=== PATIENT | female | born 1965 | race African-American/Black ===

== ENCOUNTER 2019-09-24 19:50 | Inpatient (IN) | payer BC ==
[2019-09-17 12:23] VITALS: BMI 31.5
--- NOTE | 2019-09-24 07:51 | HP ---
Admitting History and Physical - Admission Chief Complaint: left hip osteoarthritis x years History of Present Illness: 54 year old female presents today in regard to their left hip. Longstanding history of left hip osteoarthritis. Patient complains of pain, limited ROM, difficulty ambulating and difficulty completing activities of daily living. Patient has failed conservative treatment options including PO medications, injections, exercise programs and activity modification. Diagnostic testing reveals severe osteoarthritis of the left hip joint. At this point, patient would like to proceed with surgical intervention; a left total hip arthroplasty, MAKOplasty. History Source: Patient - Past Medical History ...LMP: 09/03/19 Heme/Onc: Yes: Anemia Musculoskeletal: Yes: Osteoarthritis ENT: Yes: Allergic Rhinitis - Past Surgical History Additional Past Surgical History: See written history & physical. - Smoking History Smoking history: Never smoked Have you smoked in the past 12 months: No Home Medications - Allergies Allergies/Adverse Reactions: Allergies Allergy/AdvReac Type Severity Reaction Status Date / Time No Known Drug Allergies Allergy Verified 09/17/19 12:10 - Home Medications Home Medications: Ambulatory Orders Diclofenac Sodium 75 mg PO BID 09/17/19 Ferrous Sulfate [Feosol] 325 mg PO DAILY 09/17/19 Fluticasone Prop 0.05% Nasal [Flonase -] 1 - 2 spray NS DAILY 09/17/19 Saccharomyces Boulardii [Probiotic] 250 mg PO DAILY 09/17/19 Review of Systems - Review of Systems Musculoskeletal: reports: Decreased ROM (left hip), Joint Pain (left hip) Physical Examination Constitutional: Yes: Well Nourished, No Distress Eyes: Yes: Conjunctiva Clear HENT: Yes: Atraumatic Neck: Yes: Supple Cardiovascular: Yes: Regular Rate and Rhythm Respiratory: Yes: Regular Gastrointestinal: Yes: Soft Musculoskeletal: Yes: Joint Stiffness (left hip), Other (limited ROM left hip) Assessment/Plan 54 year old female presents today in regard to their left hip. Longstanding history of left hip osteoarthritis. Patient complains of pain, limited ROM, difficulty ambulating and difficulty completing activities of daily living. Patient has failed conservative treatment options including PO medications, injections, exercise programs and activity modification. Diagnostic testing reveals severe osteoarthritis of the left hip joint. At this point, patient would like to proceed with surgical intervention; a left total hip arthroplasty, MAKOplasty. Pros, cons, risks, benefits & alternatives of a left total hip arthroplasty, MAKOplasty was discussed with the patient at length. Patient confirms his understanding and consents to proceed with a left total hip arthroplasty - MAKOplasty.
--- NOTE | 2019-09-24 15:40 | SURG ---
Surgery Farmhand Note Farmhand: Emilio Scott PA-C Date of Service: 09/24/19 Diagnosis: Left hip osteoarthritis Procedure: Left hip michelet assisted arthroplasty I was present for the entirety of the operative procedure. For further detail, please refer to operative report. Visit type - Case Type Case Type: Scheduled - Emergency Emergency Visit: No - New patient This patient is new to me today: Yes Date on this admission: 09/24/19 - Critical Care Critical Care patient: No
[2019-09-24] MEDS: traMADol HCL 50 MG TABLET PO SCH ×2 (16:05→21:01)
--- NOTE | 2019-09-24 16:06 | OP ---
Operative Note - Note: Operative Date: 09/24/19 Pre-Operative Diagnosis: Left hip OA Operation: Left JACOBO KINDRA Post-Operative Diagnosis: Same as Pre-op Surgeon: Tung Henry Boiler Repairman: Emilio Scott Anesthesia: Spinal Estimated Blood Loss (mls): 200
[~2019-09-24 19:50] MED LIST: ACETAMINOPHEN 1000 MG/100 ML VIAL (NON FORMULARY) IVPB ONE; ACETAMINOPHEN 325 MG TABLET (FP) PO SCH; BUPIVICAINE 0.25%/MORPH PF/KETOROLAC - 51ML DISP.SYRINGE IA ONE; CEFAZOLIN 2 GM in DEXTROSE 5%-WATER - 50 ML IVPB ONE; CELECOXIB 200 MG CAPSULE PO ONE; DEXAMETHASONE SOD PHOSPHATE 4 MG/1 ML VIAL ONE; KETOROLAC TROMETHAMINE 30 MG/1 ML VIAL ONE; LACTATED RINGERS SOLUTION 1,000 ML IV SCH; LIDOCAINE 1% P/F 10 MG/ML VIAL ONE; LIDOCAINE HCL/PF 2% SDV 5ML VIAL ONE; MAG HYDROX/AL HYDROX/SIMETH 30 ML UNIT-DOSE CUP PO PRN; MAGNESIUM HYDROX 2400MG/30ML ORAL SUSPENSION 30 ML CUP PO PRN; MIDAZOLAM HCL 2 MG/2 ML SINGLE DOSE VIAL ONE; ONDANSETRON 4 MG/2 ML VIAL IVPUSH PRN; ONDANSETRON 4 MG/2 ML VIAL ONE; PANTOPRAZOLE 40 MG TABLET PO ONE; PROPOFOL 20 ML ONE; ROPIVACAINE HCL 0.5% 30ML VIAL ONE; SODIUM CHLORIDE 0.9% P/F 10 ML VIAL IJ ONE; TRANEXAMIC ACID 1000 MG/10 ML VIAL IVPB ONE; TRANEXAMIC ACID 1000 MG/10 ML VIAL IVPUSH ONE; TRANEXAMIC ACID 1000 MG/10 ML VIAL ONE; VANCOMYCIN 1,000 MG VIAL (RESTRICTED TO ID ONLY) IVPB ONE; VANCOMYCIN 1,000 MG VIAL (RESTRICTED TO ID ONLY) ONE; ceFAZolin SODIUM 1 GM VIAL IVPB ONE; ceFAZolin SODIUM 1 GM VIAL ONE; oxyCODONE HCL 10 MG SUSTAINED ACTING TABLET PO ONE; oxyCODONE HCL 5 MG TABLET PO PRN
[2019-09-24] MEDS: CEFAZOLIN 2 GM/D5W 2 GM/50 ML ML IVPB SCH (21:00)
[2019-09-24] MEDS: SENNOSIDES/DOCUSATE COMBO (SENNA PLUS) TABLET (UD) PO SCH (21:00)
[2019-09-24] MEDS: CELECOXIB 200 MG CAPSULE PO SCH (21:00)
[2019-09-24] MEDS: ACETAMINOPHEN 325 MG TABLET (FP) PO SCH (21:01)
[2019-09-24] MEDS: oxyCODONE HCL 10 MG SUSTAINED ACTING TABLET PO SCH (21:01)
[2019-09-24] MEDS: ASCORBIC ACID 500 MG TABLET (FP) PO SCH (21:01)
[2019-09-24] MEDS: GABAPENTIN 300 MG CAPSULE PO SCH (21:01)
--- NOTE | 2019-09-24 21:04 | SPEC ---
DATE OF OPERATION: 09/24/2019 PREOPERATIVE DIAGNOSIS: Left hip osteoarthritis. POSTOPERATIVE DIAGNOSIS: Left hip osteoarthritis. PROCEDURE: Left total hip replacement with SIMBA plasty robotic navigation. ATTENDING: Fatoumata Garcia MD MD ALLERGY IMMUNOLOGY: Emilio Scott PA-C ANESTHESIA: Spinal plus sedation. ESTIMATED BLOOD LOSS: 200 mL. COMPLICATIONS: None. DISPOSITION: The patient was transferred to the PACU in stable condition. IMPLANT USED: Monae Accolade II size 4 femoral component, stridor Trident II 2-mm acetabular component, with 25 and 30-mm acetabular screws. MDM bipolar head ball and liner with ceramic inner head ball. INDICATIONS: This is a 54-year-old female who presented to the office complaining severe left hip pain. She was seen and examined by Dr. Garcia and diagnosed with severe left hip osteoarthritis. The patient was initially treated conservatively but continued to have severe pain and ambulatory dysfunction. She was therefore indicated for a left total hip replacement. The risks, benefits, and alternatives to the procedure were explained to the patient in great detail, and she elected to proceed with the surgery. DESCRIPTION OF PROCEDURE: On the day of surgery, the patient was taken to the operating room and placed on the OR table. Spinal anesthesia was administered by the anesthesiologist. The patient was then positioned in the lateral decubitus position on the table and all bony prominences were padded. An axillary roll was placed. The operative hip was then prepped and draped in the usual sterile fashion and intravenous antibiotics were given for infection prophylaxis. A surgical time-out was then performed with the team, and the patients identity, procedure, side, availability of implants, and the administration of antibiotics were confirmed. An approximately 15-cm longitudinal incision was made through the skin centered on the greater trochanter of the hip. This dissection was carried down through the subcutaneous tissues to the deep fascia. This fascia was then incised and a Cobra was placed around the inferior femoral neck. Electrocautery was used to reflect the anterior 40% of the gluteus medius and minimus starting at the musculotendinous junction and leaving a cuff for closure. This was reflected to reveal the capsule of the hip joint. An anterior capsulectomy was performed and the femoral head and neck were visualized. Grade 4 changes were noted diffusely throughout the joint. At this point, three small stab incisions were made superior to the main incision along the iliac crest. Three self-drilling Steinmann pins were then placed and the [employer] pelvic array was attached. Reference points on the limb were then entered into the robotic device and the limb length deficiency, offset, and femoral neck resection level were then calculated by the software. The hip was then dislocated with traction and external rotation. An oscillating saw was used to make the femoral neck cut at the level previously templated, and the femoral head was removed. Attention was then turned to the acetabulum. Retractors were then placed around the acetabulum and the labrum was removed. An acetabular checkpoint pin and the [employer] software were used to register the contours of the acetabulum. The acetabulum was then reamed in a single stage to the preoperatively templated size using the [employer] robotic arm. The appropriately sized cup was then impacted and had solid fixation as well as the preset inclination and version of 40 and 20 degrees, respectively. A polyethylene liner was then placed in the cup. Attention was then turned back to the femur, which was externally rotated for improved visualization. A femoral neck elevator was used to present the femoral neck cut, a box osteotome was used to enter the femoral canal, and a canal finder was used to go down the femoral shaft. The Simba broaches were used sequentially until the optimal scratch fit was achieved. This correlated with the preoperatively templated size. From here, several different offset head and neck configurations were tested until excellent stability and length were obtained. These measurements were quantified using the [employer] software. All trial components were then removed, the femur was copiously irrigated, and the final components were placed. Leg length and stability were checked again and found to be excellent. Irrigation was performed again. Wound closure was started by repairing the abductor muscles with a no. 2 FiberWire stitch in a Krackow configuration passed through bone tunnels in the greater trochanter and tied over a bony bridge. This repair was then reinforced with a 0 V-Loc 180 barbed suture. Next, no. 1 Polysorb and 0 V-Loc 180 were used to close the fascia. The deep subcutaneous tissue was closed with no. 1 Polysorb sutures, and 2-0 Polysorb was used for the superficial subcutaneous tissue. The skin was closed using both 3-0 V-Loc 90 suture in a running subcuticular fashion and SwiftSet skin adhesive. The Simba array and pins were removed from the iliac crest and the stab incision sites were irrigated and closed with 4-0 Polysorb sutures and [employer] skin adhesive. Once this was completed, a sterile dressing was applied. The patient was then awakened and taken to the PACU in stable condition. ADDENDUM: After final implants were placed, a 3-minute dilute Betadine soak was performed. Following this, the wound was thoroughly irrigated with normal saline via pulsatile lavage and wound closure was begun. FATOUMATA GARCIA M.D. [id number]
[2019-09-24] MEDS: KETOROLAC TROMETHAMINE 30 MG/1 ML VIAL IVPUSH SCH (21:44)
[2019-09-25] MEDS ORDERED: DEXAMETHASONE SOD PHOSPHATE 10 MG/1 ML VIAL IVPB ONE
[2019-09-25] MEDS: KETOROLAC TROMETHAMINE 30 MG/1 ML VIAL IVPUSH SCH ×3 (03:37→16:30)
[2019-09-25] MEDS: traMADol HCL 50 MG TABLET PO SCH ×4 (03:38→22:20)
[2019-09-25] MEDS: ACETAMINOPHEN 325 MG TABLET (FP) PO SCH ×4 (03:38→22:19)
[2019-09-25] MEDS: CEFAZOLIN 2 GM/D5W 2 GM/50 ML ML IVPB SCH ×2 (06:22→14:40)
[2019-09-25] MEDS: ASPIRIN 325 MG TABLET PO SCH (08:10)
[2019-09-25 08:13] LABS: CALCIUM 8.5 mg/dl (8.5-10); CREATININE 0.5 mg/dl (0.55-1.3); POTASSIUM 3.8 mmol/L (3.5-5.1)
[2019-09-25 08:19] LABS: HEMATOCRIT 27.1 % (32.4-45.2); HEMOGLOBIN 9.2 GM/dl (10.7-15.3); MCH 26.2 pg (25.7-33.7); MEAN CELL VOLUME 76.9 fl (80-96); MEAN PLT VOLUME 8.9 fl (7.5-11.1); PLATELET COUNT 279 K/MM3 (134-434); RBC 3.52 M/mm3 (3.60-5.2); RDW 17.1 % (11.6-15.6); WHITE BLOOD COUNT 13.9 K/mm3 (4.0-10.8)
[2019-09-25] MEDS: CELECOXIB 200 MG CAPSULE PO SCH ×2 (10:05→22:22)
[2019-09-25] MEDS: GABAPENTIN 300 MG CAPSULE PO SCH ×2 (10:05→22:19)
[2019-09-25] MEDS: MULTIVITAMINS (DAILY MVI) TABLET (FP) PO SCH (10:10)
[2019-09-25] MEDS: PANTOPRAZOLE 40 MG TABLET PO SCH (10:10)
[2019-09-25] MEDS: SENNOSIDES/DOCUSATE COMBO (SENNA PLUS) TABLET (UD) PO SCH ×2 (10:10→22:20)
[2019-09-25] MEDS: oxyCODONE HCL 10 MG SUSTAINED ACTING TABLET PO SCH ×2 (10:20→22:22)
[2019-09-25] MEDS: ASCORBIC ACID 500 MG TABLET (FP) PO SCH ×2 (10:25→22:22)
--- NOTE | 2019-09-25 14:11 | PN ---
Progress Note (short form) - Note Progress Note: ANESTHESIA POSTOP 54 YO FEMALE POD#1 S/P LTHA Patient sitting in chair. No complaints. Pain adequately controlled. VSS, Afebrile Continue current care. Encouraged active participation in PT and use of IS. No anesthetic complications.
[2019-09-26] MEDS: ACETAMINOPHEN 325 MG TABLET (FP) PO SCH ×2 (05:22→10:54)
[2019-09-26] MEDS: traMADol HCL 50 MG TABLET PO SCH ×2 (05:22→10:00)
[2019-09-26 06:46] VITALS: BP 116/63; PULSE 73; TEMP 98.5
[2019-09-26] MEDS: ASPIRIN 325 MG TABLET PO SCH (08:05)
[2019-09-26 08:52] LABS: HEMATOCRIT 25.9 % (32.4-45.2); HEMOGLOBIN 8.6 GM/dl (10.7-15.3); MCH 25.9 pg (25.7-33.7); MCHC 33.5 g/dl (32.0-36.0); MEAN CELL VOLUME 77.3 fl (80-96); PLATELET COUNT 284 K/MM3 (134-434); RBC 3.35 M/mm3 (3.60-5.2); RDW 17.6 % (11.6-15.6)
[2019-09-26] MEDS: GABAPENTIN 300 MG CAPSULE PO SCH (10:53)
[2019-09-26] MEDS: CELECOXIB 200 MG CAPSULE PO SCH (10:53)
[2019-09-26] MEDS: oxyCODONE HCL 10 MG SUSTAINED ACTING TABLET PO SCH (10:53)
[2019-09-26] MEDS: MULTIVITAMINS (DAILY MVI) TABLET (FP) PO SCH (10:54)
[2019-09-26] MEDS: SENNOSIDES/DOCUSATE COMBO (SENNA PLUS) TABLET (UD) PO SCH (10:54)
[2019-09-26] MEDS: PANTOPRAZOLE 40 MG TABLET PO SCH (10:54)
[2019-09-26] MEDS: ASCORBIC ACID 500 MG TABLET (FP) PO SCH (10:55)
--- NOTE | 2019-09-26 15:52 | PATH ---
Surgical Pathology Report Patient Name: JAYJune Med. Rec. #: [id number] /Age/Gender: 1965 (Age: 54) / F Account: <[id number]> Location: [facility] Taken: 09/24/2019 Received: 09/24/2019 Reported: 09/26/2019 Physicians: Tung Henry M.D. Specimen(s) Received LEFT FEMORAL HEAD Clinical History Left hip osteoarthritis Final Diagnosis FEMORAL HEAD, LEFT, TOTAL HIP REPLACEMENT: DEGENERATIVE JOINT DISEASE. Electronically Signed Jonelle Mtz M.D. Gross Description Received in formalin, labeled "left femoral head," is a 4.2 x 4.2 x 3.9 cm. femoral head with a 0.8 cm in length portion of femoral neck attached. The margin of resection is smooth. There is a 2.4 cm in greatest dimension area of eburnation present. The remaining articular surface is mcpherson-yellow and diffusely granular. The underlying trabecular bone is yellow and hard. A assisted sales representative section is submitted in one cassette, following decalcification. /09/25/2019 [facility]09/25/2019
--- NOTE | 2019-09-26 23:59 | DS ---
Physical Examination Vital Signs: Vital Signs Temperature 98.5 F 09/26/19 06:00 Pulse Rate 73 09/26/19 06:00 Respiratory Rate 18 09/26/19 06:00 Blood Pressure 116/63 09/26/19 06:00 O2 Sat by Pulse Oximetry (%) 96 09/26/19 06:00 Labs: CBC, BMP 09/26/19 07:23 09/25/19 06:51 Discharge Summary Problems reviewed: Yes Reason For Visit: LEFT HIP OSTEOARTHRITIS Procedures: Principal: left JACOBO KINDRA Hospital Course: Admitted for elective surgery. Procedure performed without complications. Pt received postoperative antibiotic prophylaxis and DVT ppx. Ambulated with physical therapy. Stable for discharge home with outpatient followup. Condition: Stable - Instructions Diet, Activity, Other Instructions: Dr Henry - Hip Replacement Instructions Keep the Aquacel dressing on until removed by Dr. Henry in 2 weeks - it is antibacterial and waterproof and you can shower with it on. Call the office for a follow-up appointment with Dr. Henry in 2 weeks. Take one Aspirin 325mg daily for 6 weeks to prevent blood clots in your legs. Take one Pantoprazole 40mg daily for 6 weeks to protect against heartburn and ulcers. Take Cephalexin (antibiotic) 3x/day for 10 days to help prevent skin infection. Take Celebrex 200mg twice daily for 30 days to reduce swelling and inflammation. Take a multivitamin, stool softener and extra Vitamin C supplement daily. For pain: *Mild pain (1-3/10): Take 1 Tramadol tablet every 4 hours as needed. Moderate pain (4-6/10): Take 1 Tramadol tablet and 1 Percocet tablet every 4 hours as needed. Severe pain (7-10/10): Take 1 Tramadol tablet and 2 Percocet tablets every 4 hours as needed. Activity: You can put as much weight on the operative leg as you want. For the first 6 weeks, all you need to do is walk around the house, go up/down stairs, and sit down/get up. After 6 weeks when everything is healed (and bone has grown into the implant) you will be sent for more intensive outpatient physical therapy. Always use a walker or cane for balance and to prevent falls. Expect to see swelling / bruising from the operative site all the way down to your toes. Wear the Compression stocking on the operative side during the day to minimize how much swelling there is in your foot/ankle. Don't wear the stocking at night. You don't have to wear the stocking on the other side. Disposition: VNS/HOME HEALTH CARE - Home Medications Comprehensive Discharge Medication List: Ambulatory Orders Ferrous Sulfate [Feosol] 325 mg PO DAILY 09/17/19 Fluticasone Prop 0.05% Nasal [Flonase -] 1 - 2 spray NS DAILY 09/17/19 Saccharomyces Boulardii [Probiotic] 250 mg PO DAILY 09/17/19 Ascorbic Acid [Vitamin C -] 500 mg PO BID tablet 09/25/19 Aspirin [ASA -] 325 mg PO DAILY@0800 tablet 09/25/19 Celecoxib [CeleBREX -] 200 mg PO BID #60 capsule 09/25/19 Cephalexin Monohydrate [Keflex -] 500 mg PO TID #30 capsule 09/25/19 Multivitamins [Multivit ([facility] Formulary)] 1 tab PO DAILY tab 09/25/19 Oxycodone HCl/Acetaminophen [Percocet 5-325 mg Tablet] 1 - 2 tab PO Q4H PRN #60 tablet MDD 10 09/25/19 Pantoprazole Sodium [Protonix -] 40 mg PO DAILY #40 tablet.ec 09/25/19 Sennosides/Docusate Sodium [Pericolace -] 2 tablet PO BID tablet 09/25/19 traMADol HCL [Ultram -] 50 mg PO Q4H PRN #42 tablet MDD 6 09/25/19
== END 2019-09-26 13:00 | disposition home health service (06) | DRG 470 ==
LOC: FASUSAT 19:50 → FM/S 19:50 → FASUSAT 09-25 21:51 → FM/S 09-25 21:57 → FASUSAT 09-26 05:53 → UNDOADMIN 09-26 05:54 → FM/S 09-26 05:54 → UNDOADMIN 09-26 05:56 → FM/S 09-26 05:56 → UNDOADMIN 09-26 11:15 → FM/S 09-26 11:15
PROVIDERS: ADMIT Student in an Organized Health Care Education/Training Program; ATTEND Student in an Organized Health Care Education/Training Program
PROC: 8E0W0CZ Robotic Assisted Procedure of Trunk Region, Open Approach (ICD-10-PCS; 2019-09-24)
PROC: 0SRB0JZ Replacement of Left Hip Joint with Synthetic Substitute, Open Approach (ICD-10-PCS; principal; 2019-09-24 12:05)
DX: M16.12 Unilateral primary osteoarthritis, left hip (principal); D64.9 Anemia, unspecified; J30.9 Allergic rhinitis, unspecified
CPT/HCPCS: 36415; 73502-TC-LT-FY; 80048; 84703; 85027; 88304-TC; 88311-TC; 94760; 97010-GP; 97116-GP; 97161-GP; J0131; J1100